=== PATIENT | male | born 1950 ===

== ENCOUNTER 2020-09-13 13:14 | Outpatient (CLI) | payer OTHER | END 2020-09-13 14:01 | disposition home or self-care (01) | LOC: OFIC 805 13:14 | PROVIDERS: ATTEND Otolaryngology Otology & Neurotology | DX: R49.0 Dysphonia (principal); J38.00 Paralysis of vocal cords and larynx, unspecified; R05 Cough ==

== ENCOUNTER 2024-03-04 10:49 | Day surgery (SDC) | payer OTHER ==
[~2024-03-04 10:49] MED LIST: KETO10TA2 PO; MIRALAX17 GM PO; TRAMADOL HCL50 MG PO; TYLENOL ARTHRI650 MG PO
[2024-03-04] MEDS ORDERED: CEFAZOLIN SODIUM 1,000 MG VIAL IV ONE (14:15)
[2024-03-04] MEDS ORDERED: NEURONTIN300 MG PO (14:55)
[2024-03-04] MEDS ORDERED: KETOROLAC TROMETHAMINE 30 MG VIAL IV ONE (15:15)
[2024-03-04] MEDS ORDERED: MORPHINE SULFATE 4 MG/ML VIAL IV ONE ×2 (15:55→16:20)
== END 2024-03-04 18:05 | disposition home or self-care (01) ==
LOC: CIR.AMB 10:49
PROVIDERS: ATTEND Surgery
DX: K42.0 Umbilical hernia with obstruction, without gangrene (principal)
CPT/HCPCS: 49616; C1781